=== PATIENT | female | born 1945 | race Caucasian/White ===

== ENCOUNTER → 2018-06-04 | Outpatient (CLI) | payer MEDICARE ==
[~2018-06-04] MED LIST: DILT120ERA PO; FURO20 PO; Norco 5-325 Ta1 EACH PO; OSTEO BI-FLEX1 EAC2 PO; Vitamin C100 M1 PO; WARF2.5 PO
[2018-06-04 13:01] LABS: BASOPHILS ABSOLUTE AUTO 0.08 K/mm3 (0.00-0.23); BASOPHILS PERCENT AUTO 2 % (0-2); EOSINOPHILS ABSOLUTE AUTO 0.46 K/mm3 (0.00-0.68); EOSINOPHILS PERCENT AUTO 9 % (0-6); Hematocrit 45.9 % (33.0-51.0); IMMATURE GRAN ABSOLUTE AUTO 0.01 K/mm3 (0.00-0.10); IMMATURE GRAN PERCENT AUTO 0 % (0-1); LYMPHOCYTES ABSOLUTE AUTO 1.02 K/mm3 (0.84-5.20); LYMPHOCYTES PERCENT AUTO 20 % (21-46); MONOCYTES ABSOLUTE AUTO 0.47 K/mm3 (0.16-1.47); MONOCYTES PERCENT AUTO 9 % (4-13); Mean Corpuscular HGB 31.4 pg (26.0-34.0); Mean Corpuscular HGB Conc 32.7 g/dL (31.5-36.5); Mean Corpuscular Volume 96 fL (80-100); Mean Platelet Volume 10.6 fL (9.1-12.4); NEUTROPHILS ABSOLUTE AUTO 3.13 K/mm3 (1.96-9.15); NEUTROPHILS PERCENT AUTO 61 % (41-73); Platelet Count 214 K/mm3 (150-400); RDW Coefficient Variation 15.5 % (11.7-14.2); RDW Standard Deviation 55.7 fL (35.1-46.3); Red Blood Cell Count 4.77 M/mm3 (3.80-5.20); White Blood Cell Count 5.17 K/mm3 (4.00-11.30)
[2018-06-04 13:33] LABS: International Normalized Ratio 2.53; Prothrombin Time Results 24.7 Sec (9.7-11.5)
== END | disposition home or self-care (01) ==
LOC: LAB SHORT 12:49 → LAB EV 12:49
PROVIDERS: Physician Assistant Surgical
DX: Z79.01 Long term (current) use of anticoagulants (principal); Z51.81 Encounter for therapeutic drug level monitoring; R58 Hemorrhage, not elsewhere classified
CPT/HCPCS: 85025; 85610

== ENCOUNTER 2018-11-20 14:12 | Inpatient (IN) | payer MEDICARE ==
[~2018-11-20] VITALS: Ht 154.9 cm; Wt 63.4 kg
[~2018-11-20 14:12] MED LIST changes: -FURO20 PO; +FURO40 PO
[2018-11-20] MEDS ORDERED: POTCHL10ER PO (14:33)
[2018-11-20] MEDS ORDERED: PARO30 PO (14:34)
[2018-11-20] MEDS ORDERED: CHOL10002 PO (14:35)
[2018-11-20] MEDS ORDERED: LACT10SY PO (14:35)
[2018-11-20 15:20] LABS: Source, Urine Catheter
[2018-11-20 15:25] LABS: Bilirubin, Urine Neg (Neg); Blood, Urine Neg (Neg); Glucose Qualitative, Urine Neg (Neg); Ketones, Urine Neg (Neg); Leukocyte Esterase, Urine Neg (Neg); Nitrite, Urine Neg (Neg); Protein, Urine 2+ (Neg); Specific Gravity, Urine 1.015 (1.003-1.022); Urobilinogen, Urine 1+ (Normal)
[2018-11-20 15:32] LABS: BASOPHILS ABSOLUTE AUTO 0.06 K/mm3 (0.00-0.23); BASOPHILS PERCENT AUTO 1 % (0-2); EOSINOPHILS ABSOLUTE AUTO 0.32 K/mm3 (0.00-0.68); EOSINOPHILS PERCENT AUTO 5 % (0-6); Hematocrit 42.9 % (33.0-51.0); Hemoglobin 13.7 g/dL (11.5-16.0); IMMATURE GRAN ABSOLUTE AUTO 0.01 K/mm3 (0.00-0.10); IMMATURE GRAN PERCENT AUTO 0 % (0-1); LYMPHOCYTES PERCENT AUTO 11 % (21-46); MONOCYTES ABSOLUTE AUTO 0.96 K/mm3 (0.16-1.47); MONOCYTES PERCENT AUTO 15 % (4-13); Mean Corpuscular HGB 30.1 pg (26.0-34.0); Mean Corpuscular HGB Conc 31.9 g/dL (31.5-36.5); Mean Corpuscular Volume 94 fL (80-100); NEUTROPHILS ABSOLUTE AUTO 4.45 K/mm3 (1.96-9.15); NEUTROPHILS PERCENT AUTO 68 % (41-73); Platelet Count 224 K/mm3 (150-400); RDW Coefficient Variation 17.5 % (11.7-14.2); RDW Standard Deviation 57.3 fL (35.1-46.3); Red Blood Cell Count 4.55 M/mm3 (3.80-5.20)
[2018-11-20 15:40] LABS: Appearance, Urine Hazy (Clear); Color, Urine Yellow (P-Yellow)
[2018-11-20 15:41] LABS: Squamous Epithelial Cells Many /hpf (Few)
[2018-11-20 15:43] LABS: Bacteria Mod /hpf; Red Blood Cells, Urine Not Seen /hpf (0-2)
[2018-11-20 15:53] LABS: Albumin, Blood 2.8 g/dL (3.4-5.0); Albumin/Globulin Ratio 0.7 (0.8-1.8); Bilirubin, Total 2.5 mg/dL (0.1-1.0); Bun/Creatinine Ratio 19.4 (12.0-20.0); Calcium, Blood 11.1 mg/dL (8.5-10.1); Creatinine, Blood 1.24 mg/dL (0.40-1.00); Globulin, Blood 4.3 g/dL (2.2-4.0); Potassium, Blood 3.9 mmol/L (3.5-5.5); Total Protein, Blood 7.1 g/dL (6.4-8.2)
[2018-11-20 16:33] LABS: Prothrombin Time Results >148.7 Sec (9.7-11.5)
[2018-11-20 16:34] LABS: International Normalized Ratio No Calc
[2018-11-20 16:48] LABS: PCO2 Arterial 42.6 mmHg (35-45); PO2 Arterial 74.7 mmHg (80-100); pH Blood Arterial 7.46 (7.35-7.45)
[2018-11-20 18:02] LABS: U Amphetamine Screen Not Detected; U Barbituate Screen Not Detected; U Benzodiazapine Screen Not Detected; U Buprenorphine Screen Not Detected; U Cannabinoids Screen Not Detected; U Cocaine Screen Not Detected; U Methadone Screen Not Detected; U Methamphetamine Screen Not Detected; U Opiates Screen Not Detected; U Oxycodone Screen Not Detected; U Phencyclidine Screen Not Detected; U Propoxyphene Screen Not Detected
--- NOTE | 2018-11-20 20:00 | NUR ---
THE 2199 NOTE ADMIT TIME IS INCORRECT, PT HERE AT 2000 VIA GURNEY. OTHERWISE ALL DOCUMENTATION AT 2200 WAS CORRECT.
--- NOTE | 2018-11-20 20:21 | NUR ---
FFP STARTED INFUSING AT 2020, FINISHED INFUSING AT 2037, HOWEVER, COMPUTER DID NOT REGISTER THE CORRECT FINISH TIME, ABOVE.
[2018-11-20 21:46] LABS: International Normalized Ratio 3.5
[2018-11-20 21:55] LABS: Prothrombin Time Results 33.6 Sec (9.7-11.5)
--- NOTE | 2018-11-20 22:00 | NUR ---
PT HERE VIA RENE FROM ER. PT TRANSFERRED TO PCU BED. PT IS ALERT TO PERSON, PLACE, FAMILY, AND FOLLOWS INSTRUCTIONS. PT IS UNSURE OF THE YEAR. DAUGHTER REPORTS PT HAS HAD A VERY POOR APPETITE FOR THE LAST 10 DAYS. PT HAS A HISTORY OF A DOUBLE MASTECTOMY - PT REPORTS ITS "OK" TO TAKE VITALS ON EITHER SIDE - NO LYMPH EDEMA NOTED. LS ARE CLEAR THROUGHOUT, EXCEPT EXPIRATORY WHEEZE IN LEFT BASE. PT CURRENTLY IN AFIB, PER MT. NEURO CHECK WNL, UPPER AND LOWER EXTREMITY STRENGTH EQUAL, STRONG. PT HAS A HISTORY OF A PROLAPSED RECTUM. BLOOD NOTED ON ATTENDS, APPROXIMATELY 2" X 3" ON ATTENDS. PT DENIES ANY PAIN. DAUGHTER REPORTS PT HAS OCCASIONALLY DECLINED LACTULOSE AT HOME, DUE TO HER PROLAPSED RECTUM. EYES SLIGHTLY JAUNDICED IN COLOR. SKIN COLOR PINK, WARM AND DRY. DAUGHTER PROVIDED MUCH OF THE ADMIT HISTORY. CALL LIGHT WITHIN REACH. BED IN LOW POSITION. BED ALARM ON FOR PT SAFETY. ICE WATER PROVIDED.
--- NOTE | 2018-11-20 23:23 | NUR ---
NEURO CHECKS WNL. PT IS ALERT AND ORIENTED X2. SHE THINKS THE YEAR IS 2018, REMINDED HER IT WAS 2108, CAME BACK TO THE QUESTION, PT COULDN'T REMEMBER THE YEAR 2018.
--- NOTE | 2018-11-21 00:50 | NUR ---
JENNY PLASMA STARTED INFUSING AT 2020, AND FINISHED INFUSING AT 2037, HOWEVER THE COMPUTER DID NOT REGISTER THE CORRECT INFUSION FINISH TIME, ABOVE.
--- NOTE | 2018-11-21 04:46 | NUR ---
SHIFT SUMMARY - NO ACUTE CHANGES SINCE ADMIT LAST NOC. PT HAD ONE EPISODE OF RECTAL BLEEDING UPON ADMIT TO UNIT, APPX 2" X 3" ON THE ATTENDS. PT HAS A PROLAPSED RECTUM. NO OTHER VISIBLE SIGNS OF BLEEDING. FRESH FROZEN PLASMA INFUSED X1 WITHOUT COMPLICATIONS. PT SLEPT FOR SEVERAL HOURS. NO CHANGE IN MENTATION SINCE ADMIT TONIGHT. FLUIDS AT BEDSIDE. BED IN LOW POSITION. CALL LIGHT WITHIN REACH.
[2018-11-21 05:54] LABS: Hematocrit 40.9 % (33.0-51.0); Mean Corpuscular HGB 29.9 pg (26.0-34.0); Mean Corpuscular HGB Conc 31.8 g/dL (31.5-36.5); Mean Corpuscular Volume 94 fL (80-100); Mean Platelet Volume 10.2 fL (9.1-12.4); Platelet Count 206 K/mm3 (150-400); RDW Coefficient Variation 17.3 % (11.7-14.2); RDW Standard Deviation 57.3 fL (35.1-46.3); Red Blood Cell Count 4.35 M/mm3 (3.80-5.20); White Blood Cell Count 5.84 K/mm3 (4.00-11.30)
[2018-11-21 06:07] LABS: International Normalized Ratio 2.24
[2018-11-21 06:18] LABS: Albumin, Blood 2.9 g/dL (3.4-5.0); Albumin/Globulin Ratio 0.7 (0.8-1.8); Bilirubin, Total 3.4 mg/dL (0.1-1.0); Bun/Creatinine Ratio 17.8 (12.0-20.0); Calcium, Blood 10.8 mg/dL (8.5-10.1); Creatinine, Blood 1.29 mg/dL (0.40-1.00); Globulin, Blood 4.2 g/dL (2.2-4.0); Potassium, Blood 3.8 mmol/L (3.5-5.5); Total Protein, Blood 7.1 g/dL (6.4-8.2)
--- NOTE | 2018-11-21 10:44 | NUR ---
Assumed Care: Assumed care of pt at approx 0700. VSS. In no apparent sign of distress. Pt is A&Ox3 and mentation appears to be improving. Holding lasix, cardizem, and potassium per dr. Bojorquez d/t hypotension. Pt repositions self. Bed alarm on. Denies any SOB. Denies any pain, n/t or n/v. Resumed lactulose this AM. Pt denies any acute complaints or events at this time. Request for records faxed to [facility] in [facility]. Social service consult placed for medical management at home. Update: Family at bedside 1040. Pt interacting appropriately - some confusion. Updated family on pt condition and answered any questions they had (son and daughter). Will continue to monitor patient.
--- NOTE | 2018-11-21 11:07 | NUR ---
As I entered the patient's room I was welcomed by the patient and her daughter. Patient was alert but had periodic confusion. Her daughter would help get her back on topic. Patient had a great sense of humor and a wonderful dispostion. Patient expressed an unseattledness about her hospitalization and confusion over her diagnosis. As I normalized her experience some of her anxiety seemed to be contained. I provided emotional support and prayer. Patient and daughter stated a gratefulness for the prayer and visitation.
--- NOTE | 2018-11-21 14:20 | NUR ---
ECHOCARDIOGRAM COMPLETE
--- NOTE | 2018-11-21 18:13 | NUR ---
Shift Summary No acute changes since initial shift assessment. VSS. In no apparent sign of distress. Pt has been aflutter in the 60's-70's since approx 0900 this AM. Mentation has improved throughout the shift mildly. Waiting for records to be faxed from hospital in [place] - received fax that request for records was received. Pt has repositioned self. Denies any pain. school services officer in today and would like to speak with the daughter before discharge. Pt denies any acute complaints or events t/o the night. Currently resting in bed with call light within reach. Denies any further questions, complaints or requests at this time. Will continue to monitor until report is given to leonard SARGENT.
--- NOTE | 2018-11-21 22:49 | NUR ---
ASSUMED CARE OF PATIENT AT APPROXIMATELY 1900 FROM LADY Hernandez RN. PATIENT ALERT AND ORIENTED TO SELF, OCCASIONALLY AND FAMILY. PATIENT CONFUSED; IMPULSIVE AT TIMES; ATTEMPTS TO AMBULATE MINUTES AFTER EDUCATED ABOUT FALL RISK AND CALL BEFORE AMBULATION; DAUGHTER REPORTS "I TOLD THEM SHE IS STUBBORN", DAUGHTER IN FOR AN UPDATE ON CONDITION; REQUESTED DOCTOR CALL HER IN THE MORNING. DAUGHTER REPORTED PATIENT WILL COME STAY WITH HER AFTER ADMIT. PATIENT DENIES PAIN, NUMBESS, TINGLING AND DIZZINESS. PATIENT INCONTINENT OF URINE AND LOOSE STOOL; ATTENDS IN PLACE. PATIENT STATED SHE WAS GOING TO THROW MEDICATION AT STAFF. AFLUTTER ON TELE WITH RATE 80-90'S; OXYGEN SATURATION ABOVE 90% ON 4LPM VIA NC (BASELINE). PIV S/L. PATIENT CURRENTLY SLEEPING IN BED; CALL LIGHT IN REACH; BED IN LOWEST POSISTION; BED ALARM ON; WILL CONTINUE TO MONITOR AND ASSESS UNTIL END OF SHIFT.
[2018-11-22 04:23] LABS: BASOPHILS ABSOLUTE AUTO 0.05 K/mm3 (0.00-0.23); BASOPHILS PERCENT AUTO 1 % (0-2); EOSINOPHILS ABSOLUTE AUTO 0.49 K/mm3 (0.00-0.68); EOSINOPHILS PERCENT AUTO 6 % (0-6); Hematocrit 41.9 % (33.0-51.0); Hemoglobin 13.1 g/dL (11.5-16.0); IMMATURE GRAN ABSOLUTE AUTO 0.02 K/mm3 (0.00-0.10); IMMATURE GRAN PERCENT AUTO 0 % (0-1); LYMPHOCYTES ABSOLUTE AUTO 0.75 K/mm3 (0.84-5.20); LYMPHOCYTES PERCENT AUTO 10 % (21-46); MONOCYTES ABSOLUTE AUTO 1.12 K/mm3 (0.16-1.47); MONOCYTES PERCENT AUTO 15 % (4-13); Mean Corpuscular HGB 29.6 pg (26.0-34.0); Mean Corpuscular HGB Conc 31.3 g/dL (31.5-36.5); Mean Corpuscular Volume 95 fL (80-100); Mean Platelet Volume 10.1 fL (9.1-12.4); NEUTROPHILS ABSOLUTE AUTO 5.22 K/mm3 (1.96-9.15); NEUTROPHILS PERCENT AUTO 68 % (41-73); Platelet Count 206 K/mm3 (150-400); RDW Coefficient Variation 17.1 % (11.7-14.2); RDW Standard Deviation 57.5 fL (35.1-46.3); Red Blood Cell Count 4.42 M/mm3 (3.80-5.20); White Blood Cell Count 7.65 K/mm3 (4.00-11.30)
[2018-11-22 04:44] LABS: Calcium, Blood 10.2 mg/dL (8.5-10.1); Creatinine, Blood 1.11 mg/dL (0.40-1.00); Potassium, Blood 3.5 mmol/L (3.5-5.5)
--- NOTE | 2018-11-22 06:47 | NUR ---
PATIENT SLEPT ABOUT EIGHT HOURS LAST NIGHT; DID NOT USE CALL LIGHT; PATIENT INCONTINENT OF STOOL TWO MORE TIMES LAST NIGHT; AMBULATED TO BEDSIDE COMMODE ONCE. PATIENT REMAINED CONFUSED FOR MOST OF THE NIGHT. NO OTHER ACUTE CHANGES TO REPORT. WILL CONTINUE TO MONITOR AND ASSESS UNTIL END OF SHIFT.
--- NOTE | 2018-11-22 12:59 | NUR ---
Assumed Care Assumed care of pt at approx 0700. VSS. In no apparent sign of distress. See assessment for detailed assessment. Dr. Szymanski at bedside this AM. Discussed possible fluid overload - Dr. Szymanski to restart lasix BID and potassium - BP more stable today. Mentation is improving significantly, but pt still makes confused statements at times. Pt also changed to medical status w/out tele - waiting for bed assignment. Daughter also in early this AM and provided with update. Pt currently resting in bed with call light within reach. Denies any further questions, complaints or requests at this time. Will continue to monitor.
--- NOTE | 2018-11-22 22:33 | NUR ---
ASSUMED CARE OF PATIENT AT APPROXIMATELY 1905 FROM LADY Hernandez RN. PATIENT ALERT AND ORIENTED TO SELF AND OCCASIONALLY; PATIENT SEEMS TO IMPROVE FOR MOMENTS. MAKES CONFUSING STATEMENTS TO STAFF MEMBERS; STATED DATE WAS FEBRUARY OF 1920; IMPULSIVE AT TIMES; ATTEMPTS TO AMBULATE MINUTES AFTER EDUCATED ABOUT FALL RISK AND CALL BEFORE AMBULATION; PATIENT DENIES PAIN, NUMBESS, TINGLING AND DIZZINESS. PATIENT REFUSED LACTULOSE TONIGHT STATING HER STOMACH IS TOO UPSET TO TAKE IT. PATIENT INCONTINENT OF URINE AND LOOSE STOOL; ATTENDS IN PLACE. PATIENT ATTEMPTS TO AMBULATE TO THE BATHROOM AND HAS BM WALKING TO COMMODE. PATIENT IS MEDICAL NO TELE STATUS. OXYGEN SATURATION ABOVE 90% ON 3LPM VIA NC (BASELINE IS 4LPM). PIV S/L. PATIENT HAD SHOWER BEFORE BEDTIME. PATIENT CURRENTLY SLEEPING IN BED; CALL LIGHT IN REACH; BED IN LOWEST POSISTION; BED ALARM ON; WILL CONTINUE TO MONITOR AND ASSESS UNTIL END OF SHIFT.
[2018-11-23 05:55] LABS: Anion Gap 7 mmol/L (6-16); Blood Urea Nitrogen 16 mg/dL (8-24); Bun/Creatinine Ratio 19.4 (12.0-20.0); CO2, Blood 31 mmol/L (21-32); Calcium, Blood 9.2 mg/dL (8.5-10.1); Chloride, Blood 94 mmol/L (98-108); Creatinine, Blood 0.83 mg/dL (0.40-1.00); Glomerular Filtration Rate >60 (60-); Glucose, Blood 85 mg/dL (70-99); Potassium, Blood 5.2 mmol/L (3.5-5.5); Sodium, Blood 132 mmol/L (136-145)
--- NOTE | 2018-11-23 06:15 | NUR ---
NO ACUTE CHANGES TO REPORT. PATIENT SLEPT ABOUT SEVEN HOURS LAST NIGHT. VSS. WILL CONTINUE TO MONITOR AND ASSESS UNTIL END OF SHIFT.
[2018-11-23] MEDS ORDERED: SPIR25 PO (14:31)
--- NOTE | 2018-11-23 19:17 | NUR ---
SUMM- PT ALERT TO SELF AND FAMILY, AWARE SHE IS IN LULING. DOES NOT REMEMBER THE NAME OF THE HOSPITAL. PT TOLERATING FOOD AND FLUIDS. RESP NONLABORED, NO DYSPNEA, CRACKLES IN THE BASES. CONT WITH LE EDEMA DND DISCOLORATION. PT CONT WITH LACTALOSE AND IV LASIX. DR URIBE WROTE DISCHARGE ORDERS THIS AM. DAWN RICH RESPONSIBLE TO TAKE MOM HOME, BUT CONCERNED SHE CAN'T CARE FOR HER MOM AT HOME. PRIMARILY STATED THAT SHE IS THE ONLY ONE IN TOWN, AND HAS TO WORK TOMORROW. BROUGHT SISTER FROM [place] INTO HOSPITAL, IN CHARGE IF A SNF FACILITY THERE. HOPING MOM CAN GO TO SNF TO BE CARED FOR. PT CONSULT DID NOT SEE PT FIT TO NEED SNF. PT'S FAMILY AGREED TO TAKE PT HOME AFTER A "SHORT MEETING" TO ARRANGE WHO WOULD CARE FOR MOM, AND THAN STATED THEY WOULD RETURN SOON THIS EVENING. DID NOT SHOW UP, RN CALLED HILARIO AT 1830 ASKING WHEN THEY WOULD BE PICKING UP MOM- HILARIO THAN STATES SHE WASN'T WILLING TO TAKE HER MOM HOME TONIGHT. SHE WAS GOING TO WORK AND WOULD BE BY AFTER 2PM / TO TAKE MOM HOME. RN REMINDED HILARIO THAT THE COMMUNICATION HAD BEEN THAT THEY WOULD RETURN THE SAME EVENING TO TAKE HER HOME AND SHOULD HAVE COMMUNICATED TRUTHFULLY. CHARGE ASHLEY NOTIFIED DR URIBE THAT FAMILY REFUSING TO TAKE PT HOME TONIGHT.
--- NOTE | 2018-11-23 20:57 | NUR ---
ASSUMED CARE OF PATIENT AT APPROXIMATELY 1900 FROM PAOLA Brandon RN. PATIENT ALERT AND ORIENTED TO SELF AND OCCASIONALLY; PATIENT SEEMS TO IMPROVE FOR MOMENTS. MAKES CONFUSING STATEMENTS TO STAFF MEMBERS; AWARE SHE IS HARMONY; OCCASIONALLY STATES SHE IS IN [place]; IMPULSIVE AT TIMES; PATIENT DENIES PAIN, NUMBESS, TINGLING AND DIZZINESS. PATIENT INCONTINENT OF URINE AND LOOSE STOOL; ATTENDS IN PLACE; ATTEMPTS TO AMBULATE IN PAST WITHOUT CALLING TO USE BATHROOM AND BED ALARM SOUNDS. PATIENT IS MEDICAL NO TELE STATUS. PATIENT WAS GIVEN DISCHARGE INSTRUCTIONS; REPORTED BY DAYSORFT STAFF THAT DAUGHTER PAOLO DID NOT WANT TO TAKE PATIENT HOME TONIGHT. OXYGEN SATURATION ABOVE 90% ON 3LPM VIA NC (BASELINE IS 2.5LPM). ON IV ORDER; ALL IV MEDS WHERE SWITCHED TO PO. PATIENT CURRENTLY SLEEPING IN BED; CALL LIGHT IN REACH; BED IN LOWEST POSISTION; BED ALARM ON; WILL CONTINUE TO MONITOR AND ASSESS UNTIL END OF SHIFT.
--- NOTE | 2018-11-24 06:12 | NUR ---
NO ACUTE CHANGES TO REPORT. PATIENT SLEPT ABOUT NINE HOURS LAST NIGHT. WILL CONTINUE TO MONITOR AND ASSESS UNTIL END OF SHIFT.
--- NOTE | 2018-11-24 07:23 | NUR ---
Bedside report from Zully French RN. The pt is awake, alert, non-anxious.
--- NOTE | 2018-11-24 08:28 | NUR ---
The pt this morning is able to states her name, birthdate, and that "I'm in the hospital." She states that the current year is"1920, or maybe 2018". Unable to venture a guess as to who the current president is. She states that she doesn't keep track. Asked where she is, she does not know what states she is in, but "Maybe [place], [place], or [place]". She later in the conversation stated that she was "here in [place]" and that she lives alone in [place]. States that she used to live in [place] for 40 years. She is able to follow conversation, directions, and is pleasant and cooperative. Non-anxious.
[2018-11-24 08:50] LABS: Source, Urine Catheter
[2018-11-24 08:56] LABS: Bilirubin, Urine Neg (Neg); Blood, Urine Neg (Neg); Glucose Qualitative, Urine Neg (Neg); Ketones, Urine 1+ (Neg); Leukocyte Esterase, Urine 2+ (Neg); Nitrite, Urine Neg (Neg); Protein, Urine 2+ (Neg); Specific Gravity, Urine 1.015 (1.003-1.022); Urobilinogen, Urine 1+ (Normal)
[2018-11-24 09:03] LABS: Appearance, Urine Hazy (Clear); Color, Urine Yellow (P-Yellow)
[2018-11-24 09:04] LABS: Amorphous Light (0-Heavy); Bacteria Few /hpf; Red Blood Cells, Urine Not Seen /hpf (0-2); Squamous Epithelial Cells Few /hpf (Few)
--- NOTE | 2018-11-24 11:03 | NUR ---
The pt states that she has her own home, and a car, and she would like to go home. When the automatic data processing planner explained that an attempt to reach Elvira "She answered the phone, and we had about a 10 second conversation and then we got disconnected," the pt then said, "Oh, she found out who you were and then she hung up on you." The pt seems to understand the social dynamics of the situation, even if she does not have complete orientation to the exact date and place. She gave verbal and written consent while both Rolanda were in the room for two other family members to be contacted to assist with discharge planning.
--- NOTE | 2018-11-24 12:00 | NUR ---
The pt was continent of stool and urine in the bathroom toilet following her walk around the PCU with the physical therapist. Set up in chair after toileting for lunch. Chair alarm in place to assure pt safety during transfers as we cannot assure that the pt will remember to call for standby assistance. The pt is cheerful, appropriate, and cooperative.
--- NOTE | 2018-11-24 14:32 | NUR ---
A young woman who called herself Linda, the granddaughter of the pt, was in the room. She asked me if I was the one who kept harrassing her mother and telling her that the hospital is not a babysitting service. Linda clarified that her mother is Elvira whom discharge planning has been attempting to call. The pt said that "You guys have to understand that we just can't take care of her. We are not able to take care of someone who is incontinent" I clarified with the granddaughter that the pt today has been continent of urine and stool, cooperative and stable. She asked what the hospital would do if someone was here and had no family or anyone to take care of them, and I explained that the role of the materials planner/production planner is to coordinate the discharge and that is what is attempting to be done; however, Elvira had not been cooperative today with the materials planner/production planner. Furthermore, Elvira told staff yesterday that she was going home to get the pt's oxygen and then would be back to pick her up, but did not make good on her word. She asked me,"Well my mother works multimedia programmer, what would you do if it was your grandmother or your mother?" I explained that personally I would have called in sick to work so that I could take care of my family member. At that point Linda became irate, and told me that she didn't care "what the shit" I would do and "get out of this room right now before I call somebody. Get out of this room so that I can talk to my grandmother." I asked her if she would be willing to talk to the materials planner/production planner, and she just said, "Get out of here, I want to talk to my grandmother," I refered the situation to clinical coordinator Letty Paige who is contacting the patient advocate, and I have also called the materials planner/production planner who is working with the patient today.
--- NOTE | 2018-11-24 15:12 | NUR ---
Granddaughter spent several minutes in the room, with the door closed, and then left abruptly without talking to anyone. The pt states that her granddaughter told her that she just has to stay here in the hospital. Pt expressed fear that her daughter might become very angry with her for "rocking the boat". The pt says that she wants to go to her home in [place] because she misses her siblings.
--- NOTE | 2018-11-24 17:09 | NUR ---
The pt's daughter and granddaughter suddenly appeared on the unit, entered the pt's room and shut the door without attempting any conversation with staff. The pt's room is directly across from the nurses station where several staff members were present. After several minutes, the daughter opened the door and asked, "Do you have a wheelchair? Because we are going to need one." oil well service operator helper asked if they were going to take the patient home, and the daughter said that they were. Discharge instructions were reviewed with the daughter Elvira and granddaughter by Catalina Leary.
== END 2018-11-24 16:10 | disposition home or self-care (01) | DRG 291 ==
LOC: ER 14:12 → PCU 18:08
PROVIDERS: Emergency Medicine; Hospitalist; Internal Medicine; Nurse Practitioner Acute Care; ADMIT Internal Medicine
PROC: 30233K1 Transfusion of Nonautologous Frozen Plasma into Peripheral Vein, Percutaneous Approach (ICD-10-PCS; principal; 2018-11-20)
DX: I13.0 Hypertensive heart and chronic kidney disease with heart failure and stage 1 through stage 4 chronic kidney disease, or unspecified chronic kidney disease (principal); J96.21 Acute and chronic respiratory failure with hypoxia; I50.33 Acute on chronic diastolic (congestive) heart failure; D68.32 Hemorrhagic disorder due to extrinsic circulating anticoagulants; Z87.891 Personal history of nicotine dependence; K72.90 Hepatic failure, unspecified without coma; I48.2 Chronic atrial fibrillation; K62.3 Rectal prolapse; Z99.81 Dependence on supplemental oxygen; Z90.13 Acquired absence of bilateral breasts and nipples; Z79.01 Long term (current) use of anticoagulants; N18.3 Chronic kidney disease, stage 3 (moderate); K70.30 Alcoholic cirrhosis of liver without ascites
CPT/HCPCS: 36415; 36430; 36600; 51701; 70450; 71045; 80048; 80053; 81001; 82140; 82803; 83605; 83690; 83735; 83880; 84145; 84484; 85025; 85027; 85610; 86900; 86901; 87086; 93005; 93010; 93306; 96365; 96375; 97116; 97161; 97530; 99285-25; J1940; J2765; J3430; P9059

== ENCOUNTER 2018-11-30 14:11 | Inpatient (IN) | payer MEDICARE ==
[~2018-11-30] VITALS: Ht 154.9 cm; Wt 66.5 kg
[~2018-11-30 14:11] MED LIST changes: +CHOL10002 PO; +LACT10SY PO; +PARO30 PO; +POTCHL10ER PO; +SPIR25 PO
[2018-11-30 15:07] LABS: BASOPHILS ABSOLUTE AUTO 0.05 K/mm3 (0.00-0.23); BASOPHILS PERCENT AUTO 1 % (0-2); EOSINOPHILS ABSOLUTE AUTO 0.37 K/mm3 (0.00-0.68); EOSINOPHILS PERCENT AUTO 5 % (0-6); Hematocrit 40.4 % (33.0-51.0); Hemoglobin 13.3 g/dL (11.5-16.0); IMMATURE GRAN ABSOLUTE AUTO 0.06 K/mm3 (0.00-0.10); IMMATURE GRAN PERCENT AUTO 1 % (0-1); LYMPHOCYTES ABSOLUTE AUTO 0.84 K/mm3 (0.84-5.20); LYMPHOCYTES PERCENT AUTO 11 % (21-46); MONOCYTES ABSOLUTE AUTO 0.88 K/mm3 (0.16-1.47); MONOCYTES PERCENT AUTO 11 % (4-13); Mean Corpuscular HGB 30.4 pg (26.0-34.0); Mean Corpuscular HGB Conc 32.9 g/dL (31.5-36.5); Mean Platelet Volume 10.6 fL (9.1-12.4); NEUTROPHILS PERCENT AUTO 72 % (41-73); NRBC ABSOLUTE 0.05 K/mm3 (0.00-0.02); NRBC Auto 0.6 /100 WBC (0.0-0.2); Platelet Count 281 K/mm3 (150-400); RDW Coefficient Variation 18.4 % (11.7-14.2); RDW Standard Deviation 56.2 fL (35.1-46.3); Red Blood Cell Count 4.37 M/mm3 (3.80-5.20)
[2018-11-30 15:08] LABS: Mean Corpuscular Volume 92 fL (80-100)
[2018-11-30 15:14] LABS: Base Excess Venous 3.2 mmol/L; PCO2 Venous 39.8 mmHg (38-42); PO2 Venous 81.9 mmHg (38-42); pH Blood Venous 7.45 (7.34-7.37)
[2018-11-30 15:26] LABS: Source, Urine Voided
[2018-11-30 15:32] LABS: Alanine Aminotransfer (ALT/SGP 86 U/L (12-78); Albumin, Blood 2.8 g/dL (3.4-5.0); Albumin/Globulin Ratio 0.7 (0.8-1.8); Alk Phos 208 U/L (50-136); Anion Gap 12 mmol/L (6-16); Aspartate Aminotrans (AST/SGOT 183 U/L (12-37); Bilirubin, Total 3.3 mg/dL (0.1-1.0); Blood Urea Nitrogen 66 mg/dL (8-24); Bun/Creatinine Ratio 14.8 (12.0-20.0); CO2, Blood 27 mmol/L (21-32); Calcium, Blood 10.5 mg/dL (8.5-10.1); Chloride, Blood 87 mmol/L (98-108); Creatinine, Blood 4.47 mg/dL (0.40-1.00); Globulin, Blood 4.3 g/dL (2.2-4.0); Glomerular Filtration Rate 10 (60-); Glucose, Blood 96 mg/dL (70-99); Magnesium, Blood 2.4 mg/dL (1.6-2.4); Potassium, Blood 5.2 mmol/L (3.5-5.5); Sodium, Blood 126 mmol/L (136-145); Total Protein, Blood 7.1 g/dL (6.4-8.2); Troponin I <0.015 ng/mL (0.000-0.040)
[2018-11-30 15:45] LABS: U Amphetamine Screen Not Detected; U Barbituate Screen Not Detected; U Benzodiazapine Screen Not Detected; U Buprenorphine Screen Not Detected; U Cannabinoids Screen Not Detected; U Cocaine Screen Not Detected; U Methadone Screen Not Detected; U Methamphetamine Screen Not Detected; U Opiates Screen Not Detected; U Oxycodone Screen Not Detected; U Phencyclidine Screen Not Detected; U Propoxyphene Screen Not Detected
[2018-11-30 15:59] LABS: Bilirubin, Urine Neg (Neg); Blood, Urine 1+ (Neg); Glucose Qualitative, Urine Neg (Neg); Ketones, Urine Neg (Neg); Leukocyte Esterase, Urine 1+ (Neg); Nitrite, Urine Neg (Neg); Protein, Urine 3+ (Neg); Specific Gravity, Urine 1.015 (1.003-1.022); Urobilinogen, Urine NORM (Normal)
[2018-11-30 16:00] LABS: Appearance, Urine Hazy (Clear); Color, Urine Yellow (P-Yellow)
[2018-11-30 16:01] LABS: Squamous Epithelial Cells Many /hpf (Few)
[2018-11-30 16:02] LABS: Bacteria Rare /hpf
[2018-11-30 16:39] LABS: Prothrombin Time Results >148.7 Sec (9.7-11.5)
[2018-11-30 22:56] LABS: Adenovirus Not Detected (NOT DETECT); Bordetella pertussis Not Detected (NOT DETECT); Chlamydophila pneumoniae Not Detected (NOT DETECT); Coronavirus 229E Not Detected (NOT DETECT); Coronavirus HKU1 Not Detected (NOT DETECT); Coronavirus NL63 Not Detected (NOT DETECT); Coronavirus OC43 Not Detected (NOT DETECT); Human Metapneumovirus Not Detected (NOT DETECT); Human Rhinovirus/Enterovirus Not Detected (NOT DETECT); Influenza A/2009-H1 Not Detected (NOT DETECT); Influenza A/H1 Not Detected (NOT DETECT); Influenza A/H3 Not Detected (NOT DETECT); Influenza B Not Detected (NOT DETECT); Mycoplasma pneumoniae Not Detected (NOT DETECT); Parainfluenza Virus 1 Not Detected (NOT DETECT); Parainfluenza Virus 2 Not Detected (NOT DETECT); Parainfluenza Virus 3 Not Detected (NOT DETECT); Parainfluenza Virus 4 Not Detected (NOT DETECT); Respiratory Syncytial Virus Not Detected (NOT DETECT)
[2018-12-01 00:11] LABS: Influenza A Not Detected (NOT DETECT)
[2018-12-01 05:01] LABS: BASOPHILS ABSOLUTE AUTO 0.06 K/mm3 (0.00-0.23); BASOPHILS PERCENT AUTO 1 % (0-2); EOSINOPHILS ABSOLUTE AUTO 0.42 K/mm3 (0.00-0.68); EOSINOPHILS PERCENT AUTO 5 % (0-6); Hematocrit 40.1 % (33.0-51.0); IMMATURE GRAN ABSOLUTE AUTO 0.08 K/mm3 (0.00-0.10); IMMATURE GRAN PERCENT AUTO 1 % (0-1); LYMPHOCYTES ABSOLUTE AUTO 0.84 K/mm3 (0.84-5.20); LYMPHOCYTES PERCENT AUTO 11 % (21-46); MONOCYTES ABSOLUTE AUTO 1.01 K/mm3 (0.16-1.47); MONOCYTES PERCENT AUTO 13 % (4-13); Mean Corpuscular HGB 29.7 pg (26.0-34.0); Mean Corpuscular HGB Conc 32.4 g/dL (31.5-36.5); Mean Corpuscular Volume 92 fL (80-100); Mean Platelet Volume 10.3 fL (9.1-12.4); NEUTROPHILS ABSOLUTE AUTO 5.44 K/mm3 (1.96-9.15); NEUTROPHILS PERCENT AUTO 69 % (41-73); NRBC ABSOLUTE 0.03 K/mm3 (0.00-0.02); NRBC Auto 0.4 /100 WBC (0.0-0.2); Platelet Count 240 K/mm3 (150-400); RDW Coefficient Variation 18.4 % (11.7-14.2); RDW Standard Deviation 55.9 fL (35.1-46.3); Red Blood Cell Count 4.38 M/mm3 (3.80-5.20); White Blood Cell Count 7.85 K/mm3 (4.00-11.30)
[2018-12-01 05:23] LABS: Alanine Aminotransfer (ALT/SGP 74 U/L (12-78); Albumin, Blood 2.7 g/dL (3.4-5.0); Albumin/Globulin Ratio 0.7 (0.8-1.8); Alk Phos 208 U/L (50-136); Anion Gap 12 mmol/L (6-16); Aspartate Aminotrans (AST/SGOT 147 U/L (12-37); Bilirubin, Total 3.4 mg/dL (0.1-1.0); Blood Urea Nitrogen 61 mg/dL (8-24); Bun/Creatinine Ratio 15.9 (12.0-20.0); CO2, Blood 27 mmol/L (21-32); Calcium, Blood 10.3 mg/dL (8.5-10.1); Chloride, Blood 90 mmol/L (98-108); Creatinine, Blood 3.83 mg/dL (0.40-1.00); Globulin, Blood 4.1 g/dL (2.2-4.0); Glomerular Filtration Rate 12 (60-); Glucose, Blood 80 mg/dL (70-99); Magnesium, Blood 2.3 mg/dL (1.6-2.4); Phosphorus, Blood 4.8 mg/dL (2.5-4.9); Potassium, Blood 4.9 mmol/L (3.5-5.5); Sodium, Blood 129 mmol/L (136-145); Total Protein, Blood 6.8 g/dL (6.4-8.2)
[2018-12-01 05:43] LABS: Prothrombin Time Results >148.7 Sec (9.7-11.5)
[2018-12-01 05:45] LABS: International Normalized Ratio No Calc
[2018-12-02 05:01] LABS: BASOPHILS ABSOLUTE AUTO 0.04 K/mm3 (0.00-0.23); BASOPHILS PERCENT AUTO 0 % (0-2); EOSINOPHILS ABSOLUTE AUTO 0.25 K/mm3 (0.00-0.68); EOSINOPHILS PERCENT AUTO 2 % (0-6); Hematocrit 39.2 % (33.0-51.0); Hemoglobin 12.7 g/dL (11.5-16.0); IMMATURE GRAN ABSOLUTE AUTO 0.11 K/mm3 (0.00-0.10); IMMATURE GRAN PERCENT AUTO 1 % (0-1); LYMPHOCYTES PERCENT AUTO 4 % (21-46); MONOCYTES ABSOLUTE AUTO 0.81 K/mm3 (0.16-1.47); MONOCYTES PERCENT AUTO 8 % (4-13); Mean Corpuscular HGB 29.7 pg (26.0-34.0); Mean Corpuscular HGB Conc 32.4 g/dL (31.5-36.5); Mean Corpuscular Volume 92 fL (80-100); Mean Platelet Volume 10.5 fL (9.1-12.4); NEUTROPHILS ABSOLUTE AUTO 9.19 K/mm3 (1.96-9.15); NEUTROPHILS PERCENT AUTO 85 % (41-73); NRBC ABSOLUTE 0.05 K/mm3 (0.00-0.02); NRBC Auto 0.5 /100 WBC (0.0-0.2); Platelet Count 204 K/mm3 (150-400); RDW Coefficient Variation 18.6 % (11.7-14.2); RDW Standard Deviation 56.8 fL (35.1-46.3); Red Blood Cell Count 4.27 M/mm3 (3.80-5.20)
[2018-12-02 05:12] LABS: International Normalized Ratio 2.33; Prothrombin Time Results 22.9 Sec (9.7-11.5)
[2018-12-02 05:24] LABS: Magnesium, Blood 2.2 mg/dL (1.6-2.4)
[2018-12-02 05:42] LABS: Albumin, Blood 2.7 g/dL (3.4-5.0); Anion Gap 10 mmol/L (6-16); Blood Urea Nitrogen 59 mg/dL (8-24); Bun/Creatinine Ratio 17.8 (12.0-20.0); CO2, Blood 26 mmol/L (21-32); Calcium, Blood 10.3 mg/dL (8.5-10.1); Chloride, Blood 94 mmol/L (98-108); Creatinine, Blood 3.31 mg/dL (0.40-1.00); Glomerular Filtration Rate 14 (60-); Glucose, Blood 75 mg/dL (70-99); Phosphorus, Blood 5.1 mg/dL (2.5-4.9); Potassium, Blood 5.3 mmol/L (3.5-5.5); Sodium, Blood 130 mmol/L (136-145)
[2018-12-03 05:29] LABS: Hematocrit 39.9 % (33.0-51.0); Hemoglobin 12.6 g/dL (11.5-16.0)
[2018-12-03 05:42] LABS: International Normalized Ratio 1.51; Prothrombin Time Results 15.2 Sec (9.7-11.5)
[2018-12-03 05:57] LABS: Alanine Aminotransfer (ALT/SGP 61 U/L (12-78); Albumin, Blood 2.7 g/dL (3.4-5.0); Albumin/Globulin Ratio 0.7 (0.8-1.8); Alk Phos 219 U/L (50-136); Anion Gap 13 mmol/L (6-16); Aspartate Aminotrans (AST/SGOT 105 U/L (12-37); Blood Urea Nitrogen 58 mg/dL (8-24); Bun/Creatinine Ratio 20.8 (12.0-20.0); CO2, Blood 23 mmol/L (21-32); Calcium, Blood 10.2 mg/dL (8.5-10.1); Chloride, Blood 99 mmol/L (98-108); Creatinine, Blood 2.79 mg/dL (0.40-1.00); Glomerular Filtration Rate 18 (60-); Glucose, Blood 86 mg/dL (70-99); Magnesium, Blood 2.2 mg/dL (1.6-2.4); Phosphorus, Blood 4.4 mg/dL (2.5-4.9); Potassium, Blood 4.6 mmol/L (3.5-5.5); Sodium, Blood 135 mmol/L (136-145); Total Protein, Blood 6.7 g/dL (6.4-8.2)
[2018-12-03 06:06] LABS: Bilirubin, Total 3.2 mg/dL (0.1-1.0)
== END 2018-12-05 00:50 | DRG 682 ==
LOC: ER 14:11 → MEDS 17:41
PROVIDERS: Emergency Medicine; Internal Medicine Nephrology; ADMIT Family Medicine
DX: N17.9 Acute kidney failure, unspecified (principal); J96.21 Acute and chronic respiratory failure with hypoxia; G93.40 Encephalopathy, unspecified; N39.0 Urinary tract infection, site not specified; D68.9 Coagulation defect, unspecified; E87.1 Hypo-osmolality and hyponatremia; I50.32 Chronic diastolic (congestive) heart failure; Z51.5 Encounter for palliative care; E86.0 Dehydration; E03.9 Hypothyroidism, unspecified; I48.2 Chronic atrial fibrillation; K70.30 Alcoholic cirrhosis of liver without ascites; E87.5 Hyperkalemia; J44.9 Chronic obstructive pulmonary disease, unspecified; E83.52 Hypercalcemia; N18.3 Chronic kidney disease, stage 3 (moderate); Z79.01 Long term (current) use of anticoagulants; Z95.0 Presence of cardiac pacemaker; Z99.81 Dependence on supplemental oxygen; Z85.3 Personal history of malignant neoplasm of breast; Z87.891 Personal history of nicotine dependence; F10.20 Alcohol dependence, uncomplicated
CPT/HCPCS: 36415; 70450; 71045; 74150; 76705; 76770; 80053; 80069; 81001; 82140; 82803; 83735; 83880; 83970; 84100; 84145; 84443; 84484; 85014; 85018; 85025; 85027; 85610; 87086; 87486; 87581; 87633; 87798; 93005; 93010; 96360; 96361; 99285-25; J0696; J2405; J3430; J7030; J7120